=== PATIENT | female | born 1935 | race Caucasian/White ===

== ENCOUNTER → 2016-08-09 | Outpatient (CLI) | payer OTHER ==
[~2016-08-09] MED LIST: ASCO500C3; ASPI-247; CALC600T65; LISI10TA6; MAGN200T; MECL25CH20; MULTPOW; SIMV-8
[2016-08-09 11:51] LABS: Albumin 3.4 g/dL (3.4-5.0); BUN/Creatinine Ratio 28.8; Bilirubin, Total 0.4 mg/dL (0.2-1.0); Calcium 8.9 mg/dL (8.5-10.1); Potassium 4.5 mmol/L (3.5-5.1)
[2016-08-09 14:21] LABS: Hepatitis B Surface Antibody Negative
== END | disposition home or self-care (01) ==
LOC: LAB 09:55
PROVIDERS: ATTEND Internal Medicine
DX: R93.2 Abnormal findings on diagnostic imaging of liver and biliary tract (principal)
CPT/HCPCS: 36415; 80053; 86706; 86708; 86803

== ENCOUNTER → 2016-10-14 | Outpatient (CLI) | payer OTHER ==
[2016-10-14 09:47] LABS: Basophils # (auto) 0.1 uL; Basophils % (auto) 1.7 % (0.0-2.0); Eosinophils # (auto) 0.1 uL; Eosinophils % (auto) 1.5 % (0.0-7.0); Hematocrit 43.7 % (36.0-46.0); Hemoglobin 14.7 g/dL (12.2-16.2); Lymphocytes # (auto) 1.6 uL; Lymphocytes % (auto) 25.1 % (10.0-50.0); Mean Corpuscular Hemoglobin 32.4 pg (28.0-32.0); Mean Corpuscular Hgb Conc. 33.6 g/dL (32.0-36.0); Mean Corpuscular Volume 96.4 fL (80.0-100.0); Mean Platelet Volume 9.5 fL (7.4-10.4); Monocytes # (auto) 0.9 uL; Monocytes % (auto) 13.6 % (0.0-12.0); Neutrophils # (auto) 3.6 uL; Neutrophils % (auto) 58.1 % (37.0-80.0); Platelet Count (auto) 294 10^3/uL (140-450); Red Cell Distribution Width 15.1 % (11.6-16.0); White Blood Cell 6.3 10^3/uL (4.4-10.8)
[2016-10-14 09:55] LABS: Albumin 3.8 g/dL (3.4-5.0); BUN/Creatinine Ratio 20.3; Bilirubin, Total 0.8 mg/dL (0.2-1.0); Calcium 9.3 mg/dL (8.5-10.1); Potassium 4.6 mmol/L (3.5-5.1); Total Protein 7.3 g/dL (6.4-8.2)
== END | disposition home or self-care (01) ==
LOC: LAB 09:13
PROVIDERS: ATTEND Internal Medicine
DX: Z12.11 Encounter for screening for malignant neoplasm of colon (principal); Z00.00 Encounter for general adult medical examination without abnormal findings; I10 Essential (primary) hypertension
CPT/HCPCS: 36415; 80053; 80061; 82043; 82270; 82306; 84443; 85025

== ENCOUNTER → 2016-12-22 | Outpatient (CLI) | payer OTHER ==
[2016-12-22 11:31] LABS: Aspartate Aminotransferase 34 U/L (15-37)
== END | disposition home or self-care (01) ==
LOC: LAB 09:25
PROVIDERS: ATTEND Internal Medicine
DX: R93.2 Abnormal findings on diagnostic imaging of liver and biliary tract (principal)
CPT/HCPCS: 36415; 84450; 84460

== ENCOUNTER → 2017-06-21 | Outpatient (CLI) | payer OTHER ==
[~2017-06-21] MED LIST changes: +CHOL1TAB28 PO; +DIGO0.1262 PO; +METO25TA5 PO; +WARF5TAB71 PO
[2017-06-21 12:12] LABS: Basophils # (auto) 0.3 uL; Basophils % (auto) 3.5 % (0.0-2.0); Eosinophils # (auto) 0.1 uL; Eosinophils % (auto) 1.6 % (0.0-7.0); Hematocrit 47.9 % (36.0-46.0); Hemoglobin 15.9 g/dL (12.2-16.2); Lymphocytes # (auto) 1.7 uL; Lymphocytes % (auto) 22.5 % (10.0-50.0); Mean Corpuscular Hemoglobin 32.1 pg (28.0-32.0); Mean Corpuscular Hgb Conc. 33.2 g/dL (32.0-36.0); Mean Corpuscular Volume 96.8 fL (80.0-100.0); Monocytes # (auto) 0.7 uL; Monocytes % (auto) 9.9 % (0.0-12.0); Neutrophils # (auto) 4.6 uL; Neutrophils % (auto) 62.5 % (37.0-80.0); Nucleated Red Blood Cells % 0.1 %; Platelet Count (auto) 381 10^3/uL (140-450); Red Blood Cells 4.95 10^6/uL (4.0-5.20); Red Cell Distribution Width 14.5 % (11.8-14.3); White Blood Cell 7.4 10^3/uL (4.4-10.8)
[2017-06-21 13:51] LABS: Folate (Folic Acid) 10.1 ng/mL (5.38-24)
[2017-06-21 13:54] LABS: Albumin 3.8 g/dL (3.4-5.0); BUN/Creatinine Ratio 30.1; Bilirubin, Total 0.4 mg/dL (0.2-1.0); Calcium 8.7 mg/dL (8.5-10.1); Potassium 4.9 mmol/L (3.5-5.1); Total Protein 7.9 g/dL (6.4-8.2)
[2017-06-22 03:07] LABS: RPR Non Reactive (Non Reactive)
== END | disposition home or self-care (01) ==
LOC: LAB 11:48
PROVIDERS: ATTEND Internal Medicine
DX: Z00.01 Encounter for general adult medical examination with abnormal findings (principal); G45.4 Transient global amnesia
CPT/HCPCS: 36415; 80053; 82607; 82746; 84443; 85025; 85652; 86592

== ENCOUNTER 2017-06-28 09:24 | Inpatient (IN) | payer OTHER ==
[~2017-06-28] VITALS: Ht 162.6 cm; Wt 52.6 kg
[~2017-06-28 09:24] MED LIST changes: -CHOL1TAB28 PO; -DIGO0.1262 PO; -METO25TA5 PO; -WARF5TAB71 PO
[2017-06-28 10:31] LABS: Basophils # (auto) 0.1 uL; Basophils % (auto) 1.8 % (0.0-2.0); Eosinophils # (auto) 0.1 uL; Eosinophils % (auto) 1.1 % (0.0-7.0); Hematocrit 43.1 % (36.0-46.0); Hemoglobin 13.9 g/dL (12.2-16.2); Lymphocytes # (auto) 1.3 uL; Lymphocytes % (auto) 18.2 % (10.0-50.0); Mean Corpuscular Hemoglobin 31.7 pg (28.0-32.0); Mean Corpuscular Hgb Conc. 32.3 g/dL (32.0-36.0); Mean Corpuscular Volume 98.1 fL (80.0-100.0); Monocytes # (auto) 0.9 uL; Monocytes % (auto) 12.3 % (0.0-12.0); Neutrophils # (auto) 4.9 uL; Neutrophils % (auto) 66.6 % (37.0-80.0); Nucleated Red Blood Cells % 0.1 %; Platelet Count (auto) 328 10^3/uL (140-450); Red Blood Cells 4.39 10^6/uL (4.0-5.20); Red Cell Distribution Width 14.8 % (11.8-14.3); White Blood Cell 7.4 10^3/uL (4.4-10.8)
[2017-06-28 11:42] LABS: Alanine Aminotransferase 36 U/L (13-56); Albumin 3.3 g/dL (3.4-5.0); Anion Gap 13 (5-15); Aspartate Aminotransferase 26 U/L (15-37); BUN/Creatinine Ratio 22.3; Blood Urea Nitrogen 21 mg/dL (7-18); Calcium 8.5 mg/dL (8.5-10.1); Carbon Dioxide 24 mmol/L (21-32); Chloride 101 mmol/L (98-107); GFR African American 73 mL/min; GFR Non-African American 60 mL/min; Glucose 78 mg/dL (74-106); Potassium 4.4 mmol/L (3.5-5.1); Sodium 138 mmol/L (136-145)
[2017-06-28 11:47] LABS: Alkaline Phosphatase 94 U/L (45-117); Bilirubin, Total 0.5 mg/dL (0.2-1.0)
[2017-06-28 11:53] LABS: INR 1.03 (0.9-1.15); Partial Thromboplastin Time 26.8 sec (22.64-33.71); Prothrombin Time 11.2 sec (9.37-12.3)
[2017-06-28 13:00] LABS: Urine Bacteria NONE SEEN /hpf (None Seen); Urine Blood Negative /uL (Negative); Urine Specific Gravity 1.012 (1.001-1.035); Urine WBC 2 /hpf (0 - 5)
[2017-06-28] MEDS ORDERED: ONDANSETRON HCL 4 MG/2 ML VIAL IV PRN (13:45)
[2017-06-28] MEDS ORDERED: NITROGLYCERIN 0.4 MG SL TAB SL PRN (13:45)
[2017-06-28] MEDS ORDERED: MORPHINE SULFATE 4 MG/ML SYR/VIAL IV PRN (13:45)
[2017-06-28] MEDS ORDERED: LISINOPRIL 10 MG TAB PO ONE (13:45)
[2017-06-28] MEDS ORDERED: cefTRIAXone 1GM/10ml IVPUSH 10 ML IV ONE (13:45)
[2017-06-28] MEDS: ENOXAPARIN SOD 60 MG/0.6 ML SYRINGE SC SCH ×2 (14:10→21:51)
[2017-06-28] MEDS: LABETALOL HCL 5 MG/ML ML 20ML VIAL IV PRN (14:14)
[2017-06-28] MEDS ORDERED: WARFARIN SODIUM 5 MG TAB PO ONE (17:00)
[2017-06-28 18:52] VITALS: BP 157/87
[2017-06-28] MEDS: HYDROcodone-ACET 5/325MG TAB PO PRN (18:57)
[2017-06-28] MEDS ORDERED: METO25TA5 PO (19:17)
[2017-06-28] MEDS ORDERED: WARF5TAB71 PO (19:17)
[2017-06-28] MEDS ORDERED: CHOL1TAB28 PO (19:17)
[2017-06-28] MEDS ORDERED: DIGO0.1262 PO (19:17)
[2017-06-28] MEDS: ATORVASTATIN 20 MG TAB PO SCH (21:50)
[2017-06-29] MEDS: HYDROcodone-ACET 5/325MG TAB PO PRN ×3 (03:38→21:01)
[2017-06-29] MEDS: MORPHINE SULFATE 4 MG/ML SYR/VIAL IV PRN ×2 (04:32→21:05)
[2017-06-29 04:50] VITALS: BP 102/73
[2017-06-29 07:00] LABS: INR 1.05 (0.9-1.15); Partial Thromboplastin Time 25.7 sec (22.64-33.71); Prothrombin Time 11.4 sec (9.37-12.3)
[2017-06-29] MEDS ORDERED: IOHEXOL 350 MG/ML 100ML IJ ONE (07:23)
[2017-06-29 08:00] VITALS: BP 104/50
[2017-06-29 08:19] LABS: Basophils # (auto) 0.1 uL; Basophils % (auto) 1.2 % (0.0-2.0); Eosinophils # (auto) 0 uL; Eosinophils % (auto) 0.3 % (0.0-7.0); Hematocrit 46.4 % (36.0-46.0); Hemoglobin 15.4 g/dL (12.2-16.2); Lymphocytes # (auto) 0.9 uL; Lymphocytes % (auto) 9.3 % (10.0-50.0); Mean Corpuscular Hemoglobin 32.1 pg (28.0-32.0); Mean Corpuscular Hgb Conc. 33.2 g/dL (32.0-36.0); Mean Corpuscular Volume 96.6 fL (80.0-100.0); Monocytes # (auto) 0.8 uL; Monocytes % (auto) 8.6 % (0.0-12.0); Neutrophils # (auto) 7.5 uL; Neutrophils % (auto) 80.6 % (37.0-80.0); Platelet Count (auto) 302 10^3/uL (140-450); Red Cell Distribution Width 14.6 % (11.8-14.3); White Blood Cell 9.3 10^3/uL (4.4-10.8)
[2017-06-29] MEDS: LISINOPRIL 10 MG TAB PO SCH (10:00)
[2017-06-29] MEDS: ENOXAPARIN SOD 60 MG/0.6 ML SYRINGE SC SCH (10:04)
[2017-06-29] MEDS: cefTRIAXone 1GM/10ml IVPUSH 10 ML IV SCH (10:05)
[2017-06-29] MEDS ORDERED: HEPARIN DRIP/D5W 100UNITS/ML 250 ML IV SCH (10:22)
[2017-06-29] MEDS: SODIUM CHLORIDE 0.9% 1,000 ML IV SCH (11:39)
[2017-06-29 12:00] VITALS: BP 159/77
[2017-06-29] MEDS: HEPARIN DRIP/D5W 100UNITS/ML 250 ML IV SCH (12:42)
[2017-06-29 17:00] VITALS: BP 120/46
[2017-06-29] MEDS ORDERED: WARFARIN SODIUM 5 MG TAB PO ONE (17:00)
[2017-06-29 19:23] LABS: INR 1.05 (0.9-1.15); Partial Thromboplastin Time 28.5 sec (22.64-33.71); Prothrombin Time 11.4 sec (9.37-12.3)
[2017-06-29] MEDS: ATORVASTATIN 20 MG TAB PO SCH (21:04)
[2017-06-29 22:00] VITALS: BP 158/94
[2017-06-30] VITALS (33 sets, daily range): BP systolic 94–168; BP diastolic 53–115
[2017-06-30] MEDS: LABETALOL HCL 5 MG/ML ML 20ML VIAL IV PRN (04:55)
[2017-06-30] MEDS: SODIUM CHLORIDE 0.9% 1,000 ML IV SCH ×2 (05:04→13:10)
[2017-06-30 06:38] LABS: Basophils # (auto) 0.1 uL; Eosinophils # (auto) 0.1 uL; Eosinophils % (auto) 1.4 % (0.0-7.0); Hemoglobin 14.6 g/dL (12.2-16.2); Lymphocytes # (auto) 1.2 uL; Lymphocytes % (auto) 19.3 % (10.0-50.0); Mean Corpuscular Hemoglobin 32.4 pg (28.0-32.0); Mean Corpuscular Hgb Conc. 33.2 g/dL (32.0-36.0); Mean Corpuscular Volume 97.5 fL (80.0-100.0); Monocytes # (auto) 0.7 uL; Monocytes % (auto) 11.4 % (0.0-12.0); Neutrophils # (auto) 4.2 uL; Neutrophils % (auto) 66.9 % (37.0-80.0); Nucleated Red Blood Cells % 0.1 %; Platelet Count (auto) 286 10^3/uL (140-450); Red Blood Cells 4.51 10^6/uL (4.0-5.20); Red Cell Distribution Width 14.6 % (11.8-14.3); White Blood Cell 6.2 10^3/uL (4.4-10.8)
[2017-06-30 06:50] LABS: INR 1.01 (0.9-1.15); Partial Thromboplastin Time 34.1 sec (22.64-33.71)
[2017-06-30 07:02] LABS: BUN/Creatinine Ratio 13.8; Calcium 8.5 mg/dL (8.5-10.1); Cholesterol 155 mg/dL (< 200); HDL Cholesterol 57 mg/dL (40-59); LDL Cholesterol 95 mg/dL (< 100); Potassium 4.2 mmol/L (3.5-5.1); Triglycerides 96 mg/dL (< 150)
[2017-06-30] MEDS: LISINOPRIL 10 MG TAB PO SCH (08:16)
[2017-06-30] MEDS ORDERED: IOHEXOL 350 MG/ML 100ML IJ ONE (08:25)
[2017-06-30] MEDS ORDERED: LIDOCAINE 2%HCL (LOCAL ANESTH.) INJ 20ML MDV ONE (08:25)
[2017-06-30] MEDS ORDERED: ANGIOMAX 250 MG VIAL IV ONE (08:59)
[2017-06-30] MEDS ORDERED: fentaNYL CITRATE 100 MCG/2 ML VL ONE (08:59)
[2017-06-30] MEDS ORDERED: MIDAZOLAM HCL 1MG/1ML-2 ML VIAL ONE (08:59)
[2017-06-30] MEDS: cefTRIAXone 1GM/10ml IVPUSH 10 ML IV SCH (09:00)
[2017-06-30] MEDS ORDERED: EPTIFIBATIDE INJ (2MG/ML) 10ML VIAL IV ONE ×2 (09:17→10:11)
[2017-06-30] MEDS ORDERED: EPTIFIBATIDE DRIP(0.75MG/ML) 100 ML IV ONE ×2 (10:31→15:34)
[2017-06-30] MEDS: HEPARIN DRIP/D5W 100UNITS/ML 250 ML IV SCH (12:15)
[2017-06-30] MEDS: HYDROcodone-ACET 5/325MG TAB PO PRN (12:49)
[2017-06-30 14:54] LABS: INR 1.27 (0.9-1.15); Partial Thromboplastin Time 66.9 sec (22.64-33.71); Prothrombin Time 13.9 sec (9.37-12.3)
[2017-06-30] MEDS ORDERED: DIGOXIN (250MCG/ML) 2 ML AMPULE ONE (16:25)
[2017-06-30] MEDS: DIGOXIN (250MCG/ML) 2 ML AMPULE IV SCH ×2 (16:30→22:15)
[2017-06-30] MEDS: ATORVASTATIN 20 MG TAB PO SCH (22:00)
[2017-07-01] VITALS (26 sets, daily range): BP systolic 104–175; BP diastolic 51–110
[2017-07-01] MEDS ORDERED: EPTIFIBATIDE DRIP(0.75MG/ML) 100 ML IV SCH (02:00)
[2017-07-01] MEDS: SODIUM CHLORIDE 0.9% 1,000 ML IV SCH ×2 (02:45→17:37)
[2017-07-01 03:56] LABS: Basophils # (auto) 0.1 uL; Basophils % (auto) 0.6 % (0.0-2.0); Eosinophils # (auto) 0.1 uL; Eosinophils % (auto) 0.6 % (0.0-7.0); Hematocrit 36.1 % (36.0-46.0); Hemoglobin 12.2 g/dL (12.2-16.2); Lymphocytes # (auto) 1.4 uL; Mean Corpuscular Hemoglobin 32.5 pg (28.0-32.0); Mean Corpuscular Hgb Conc. 33.7 g/dL (32.0-36.0); Mean Corpuscular Volume 96.5 fL (80.0-100.0); Monocytes # (auto) 1.3 uL; Monocytes % (auto) 12.1 % (0.0-12.0); Neutrophils # (auto) 7.9 uL; Neutrophils % (auto) 73.7 % (37.0-80.0); Platelet Count (auto) 243 10^3/uL (140-450); Red Blood Cells 3.74 10^6/uL (4.0-5.20); Red Cell Distribution Width 14.4 % (11.8-14.3); White Blood Cell 10.7 10^3/uL (4.4-10.8)
[2017-07-01 04:05] LABS: INR 1.01 (0.9-1.15); Partial Thromboplastin Time 26.6 sec (22.64-33.71)
[2017-07-01 04:14] LABS: BUN/Creatinine Ratio 26.4; Calcium 8.3 mg/dL (8.5-10.1); Potassium 3.9 mmol/L (3.5-5.1)
[2017-07-01] MEDS ORDERED: LIDOCAINE 2%HCL (LOCAL ANESTH.) INJ 20ML MDV ONE (09:15)
[2017-07-01] MEDS ORDERED: IOHEXOL 350 MG/ML 100ML IJ ONE (09:15)
[2017-07-01] MEDS ORDERED: ANGIOMAX 250 MG VIAL IV ONE (09:35)
[2017-07-01] MEDS ORDERED: MIDAZOLAM HCL 1MG/1ML-2 ML VIAL ONE (09:36)
[2017-07-01] MEDS ORDERED: fentaNYL CITRATE 100 MCG/2 ML VL ONE (09:36)
[2017-07-01] MEDS ORDERED: SODIUM CHL 0.9% 0 ML ONE (09:36)
[2017-07-01] MEDS: cefTRIAXone 1GM/10ml IVPUSH 10 ML IV SCH (10:38)
[2017-07-01] MEDS: LISINOPRIL 10 MG TAB PO SCH (10:39)
[2017-07-01] MEDS: LABETALOL HCL 5 MG/ML ML 20ML VIAL IV PRN (12:08)
[2017-07-01] MEDS ORDERED: WARFARIN SODIUM 2.5 MG TAB PO ONE (17:00)
[2017-07-01] MEDS: ATORVASTATIN 20 MG TAB PO SCH (21:05)
[2017-07-02 05:13] VITALS: BP 148/83
[2017-07-02] MEDS: SODIUM CHLORIDE 0.9% 1,000 ML IV SCH ×2 (05:49→18:30)
[2017-07-02 05:58] LABS: INR 1.04 (0.9-1.15); Prothrombin Time 11.3 sec (9.37-12.3)
[2017-07-02 06:00] LABS: Basophils # (auto) 0.1 uL; Eosinophils # (auto) 0.2 uL; Eosinophils % (auto) 2.4 % (0.0-7.0); Hematocrit 33.9 % (36.0-46.0); Hemoglobin 11.3 g/dL (12.2-16.2); Lymphocytes # (auto) 1.8 uL; Lymphocytes % (auto) 20.9 % (10.0-50.0); Mean Corpuscular Hemoglobin 32.5 pg (28.0-32.0); Mean Corpuscular Hgb Conc. 33.5 g/dL (32.0-36.0); Mean Corpuscular Volume 97.2 fL (80.0-100.0); Monocytes % (auto) 11.5 % (0.0-12.0); Neutrophils # (auto) 5.6 uL; Neutrophils % (auto) 64.2 % (37.0-80.0); Nucleated Red Blood Cells % 0.1 %; Platelet Count (auto) 209 10^3/uL (140-450); Red Blood Cells 3.48 10^6/uL (4.0-5.20); Red Cell Distribution Width 14.5 % (11.8-14.3); White Blood Cell 8.7 10^3/uL (4.4-10.8)
[2017-07-02 06:29] LABS: Calcium 7.8 mg/dL (8.5-10.1); Potassium 4.2 mmol/L (3.5-5.1)
[2017-07-02] MEDS ORDERED: MAGNESIUM CITRATE SOLUTION 300 ML BTL PO ONE (08:30)
[2017-07-02] MEDS: DIGOXIN 0.125 MG TAB PO SCH (08:53)
[2017-07-02] MEDS: cefTRIAXone 1GM/10ml IVPUSH 10 ML IV SCH (08:53)
[2017-07-02] MEDS: METOPROLOL SUCCINATE XL 50 MG TAB PO SCH (08:57)
[2017-07-02] MEDS: LISINOPRIL 10 MG TAB PO SCH (08:57)
[2017-07-02 09:00] VITALS: BP 136/62
[2017-07-02 13:00] VITALS: BP 128/69
[2017-07-02 17:00] VITALS: BP 150/58
[2017-07-02] MEDS ORDERED: WARFARIN SODIUM 2.5 MG TAB PO ONE (17:00)
[2017-07-02 20:00] VITALS: BP 112/65
[2017-07-02] MEDS: ATORVASTATIN 20 MG TAB PO SCH (21:38)
[2017-07-02 21:40] VITALS: BP 112/65
[2017-07-03 04:59] VITALS: BP 139/87
[2017-07-03 05:40] LABS: INR 1.26 (0.9-1.15); Prothrombin Time 13.8 sec (9.37-12.3)
[2017-07-03 09:00] VITALS: BP 110/62
[2017-07-03] MEDS: cefTRIAXone 1GM/10ml IVPUSH 10 ML IV SCH (10:03)
[2017-07-03] MEDS: LISINOPRIL 10 MG TAB PO SCH (10:04)
[2017-07-03] MEDS: DIGOXIN 0.125 MG TAB PO SCH (10:04)
[2017-07-03] MEDS: METOPROLOL SUCCINATE XL 50 MG TAB PO SCH (10:04)
[2017-07-03] MEDS: SODIUM CHLORIDE 0.9% 1,000 ML IV SCH (10:12)
[2017-07-03 13:00] VITALS: BP 143/68
[2017-07-03] MEDS ORDERED: WARFARIN SODIUM 2.5 MG TAB PO ONE (17:00)
== END 2017-07-03 16:30 | disposition home or self-care (01) | DRG 271 ==
LOC: ER 09:24 → TELE 09:25 → TELE-CENTR 18:15 → DOU 06-30 17:34 → ICU WEST 06-30 22:45 → TELE-WESTW 07-01 14:28
PROVIDERS: ADMIT Internal Medicine; ATTEND Family Medicine
PROC: 04CU3ZZ Extirpation of Matter from Left Peroneal Artery, Percutaneous Approach (ICD-10-PCS; 2017-06-28)
PROC: 047S3ZZ Dilation of Left Posterior Tibial Artery, Percutaneous Approach (ICD-10-PCS; 2017-06-28)
PROC: 04CS3ZZ Extirpation of Matter from Left Posterior Tibial Artery, Percutaneous Approach (ICD-10-PCS; 2017-06-28)
PROC: B41G1ZZ Fluoroscopy of Left Lower Extremity Arteries using Low Osmolar Contrast (ICD-10-PCS; principal; 2017-06-30)
PROC: 047U3ZZ Dilation of Left Peroneal Artery, Percutaneous Approach (ICD-10-PCS; 2017-06-30)
PROC: B41F1ZZ Fluoroscopy of Right Lower Extremity Arteries using Low Osmolar Contrast (ICD-10-PCS; 2017-06-30)
PROC: 3C1ZX8Z Irrigation of Indwelling Device using Irrigating Substance, External Approach (ICD-10-PCS; 2017-06-30)
PROC: 3E053PZ Introduction of Platelet Inhibitor into Peripheral Artery, Percutaneous Approach (ICD-10-PCS; 2017-06-30)
PROC: B41G1ZZ Fluoroscopy of Left Lower Extremity Arteries using Low Osmolar Contrast (ICD-10-PCS; 2017-07-01)
DX: I74.3 Embolism and thrombosis of arteries of the lower extremities (principal); G45.9 Transient cerebral ischemic attack, unspecified; D68.59 Other primary thrombophilia; I48.2 Chronic atrial fibrillation; C44.90 Unspecified malignant neoplasm of skin, unspecified; M54.12 Radiculopathy, cervical region; E78.5 Hyperlipidemia, unspecified; N39.0 Urinary tract infection, site not specified; I10 Essential (primary) hypertension; I35.1 Nonrheumatic aortic (valve) insufficiency; I67.2 Cerebral atherosclerosis; Z53.20 Procedure and treatment not carried out because of patient's decision for unspecified reasons; Z79.01 Long term (current) use of anticoagulants; Z79.899 Other long term (current) drug therapy; Z85.828 Personal history of other malignant neoplasm of skin; Z86.73 Personal history of transient ischemic attack (TIA), and cerebral infarction without residual deficits; Z80.9 Family history of malignant neoplasm, unspecified; Z88.0 Allergy status to penicillin
CPT/HCPCS: 36415; 36593; 37224; 37228; 70450; 71045; 75635; 75710; 75716; 76937; 80048; 80053; 80061; 81001; 83735; 84443; 84484; 85025; 85610; 85730; 87081; 93005; 93306; 93886; 93926; 94761; 95819; 96372; 96374; 97116; 97163; 97530; 99152; 99153; C1769; J2250

== ENCOUNTER → 2017-08-17 | Outpatient (CLI) | payer OTHER ==
[~2017-08-17] MED LIST changes: -ASCO500C3; -ASPI-247; -CALC600T65; +CHOL1TAB28 PO; +DIGO0.1262 PO; -LISI10TA6; -MAGN200T; -MECL25CH20; +METO25TA5 PO; -MULTPOW; -SIMV-8; +WARF5TAB71 PO
== END | disposition home or self-care (01) ==
LOC: Rad HDHVI 09:04
PROVIDERS: ATTEND Internal Medicine Cardiovascular Disease
DX: I73.9 Peripheral vascular disease, unspecified (principal); I10 Essential (primary) hypertension; E78.5 Hyperlipidemia, unspecified
CPT/HCPCS: 93926

== ENCOUNTER → 2017-08-26 | Outpatient (CLI) | payer OTHER ==
[2017-08-26 14:00] VITALS: BP 137/70
== END | disposition home or self-care (01) ==
LOC: CHF HDHVI 14:16
PROVIDERS: ATTEND Internal Medicine Cardiovascular Disease
DX: I10 Essential (primary) hypertension (principal); E78.5 Hyperlipidemia, unspecified; Z79.01 Long term (current) use of anticoagulants; Z79.899 Other long term (current) drug therapy; Z86.718 Personal history of other venous thrombosis and embolism
CPT/HCPCS: 96372; G0463

== ENCOUNTER → 2017-08-30 | Outpatient (CLI) | payer OTHER | END | disposition home or self-care (01) | LOC: LAB 09:00 | PROVIDERS: ATTEND Physician Assistant | DX: L85.8 Other specified epidermal thickening (principal); I10 Essential (primary) hypertension; E78.5 Hyperlipidemia, unspecified; Z79.01 Long term (current) use of anticoagulants; Z79.899 Other long term (current) drug therapy ==

== ENCOUNTER → 2017-10-11 | Outpatient (CLI) | payer OTHER | END | disposition home or self-care (01) | LOC: LAB 12:20 | PROVIDERS: ATTEND Physician Assistant | DX: L82.1 Other seborrheic keratosis (principal) ==

== ENCOUNTER → 2018-06-05 | Outpatient (CLI) | payer OTHER ==
[2018-06-05 11:58] LABS: Chloride 106 mmol/L (98-107); Potassium 4.6 mmol/L (3.5-5.1); Sodium 138 mmol/L (136-145)
[2018-06-05 12:22] LABS: Alanine Aminotransferase 33 U/L (13-56); Albumin 3.7 g/dL (3.4-5.0); Alkaline Phosphatase 102 U/L (45-117); Anion Gap 6 (5-15); Aspartate Aminotransferase 27 U/L (15-37); BUN/Creatinine Ratio 20.9; Bilirubin, Total 0.4 mg/dL (0.2-1.0); Blood Urea Nitrogen 18 mg/dL (7-18); Calcium 9.1 mg/dL (8.5-10.1); Carbon Dioxide 26 mmol/L (21-32); GFR African American > 60 mL/min; GFR Non-African American > 60 mL/min; Glucose 96 mg/dL (74-106); Total Protein 7.7 g/dL (6.4-8.2)
== END | disposition home or self-care (01) ==
LOC: LAB 11:15
PROVIDERS: ATTEND Internal Medicine
DX: I48.1 Persistent atrial fibrillation (principal)
CPT/HCPCS: 36415; 80053; 80162

== ENCOUNTER → 2019-07-10 | Outpatient (CLI) | payer OTHER ==
[~2019-07-10] MED LIST changes: +DIGO0.12 PO; -DIGO0.1262 PO
[2019-07-10 09:43] LABS: Basophils # (auto) 0.1 uL; Basophils % (auto) 1.7 % (0.0-2.0); Eosinophils # (auto) 0 uL; Eosinophils % (auto) 0.6 % (0.0-7.0); Hematocrit 46.1 % (36.0-46.0); Hemoglobin 15.7 g/dL (12.2-16.2); Lymphocytes # (auto) 1.1 uL; Lymphocytes % (auto) 18.8 % (10.0-50.0); Mean Corpuscular Volume 97.3 fL (80.0-100.0); Monocytes # (auto) 0.5 uL; Monocytes % (auto) 8.5 % (0.0-12.0); Neutrophils # (auto) 3.9 uL; Neutrophils % (auto) 70.4 % (37.0-80.0); Nucleated Red Blood Cells % 0.1 %; Platelet Count (auto) 274 10^3/uL (140-450); Red Blood Cells 4.74 10^6/uL (4.0-5.20); Red Cell Distribution Width 14.9 % (11.8-14.3); White Blood Cell 5.6 10^3/uL (4.4-10.8)
[2019-07-10 09:46] LABS: INR 1.2 (0.9-1.15)
[2019-07-10 09:54] LABS: Potassium 4.7 mmol/L (3.5-5.1)
[2019-07-10 10:03] LABS: Albumin 3.6 g/dL (3.4-5.0); Bilirubin, Total 0.7 mg/dL (0.2-1.0); Calcium 9.2 mg/dL (8.5-10.1); Total Protein 7.5 g/dL (6.4-8.2)
== END | disposition home or self-care (01) ==
LOC: LAB 08:16
PROVIDERS: ATTEND Internal Medicine
DX: Z00.00 Encounter for general adult medical examination without abnormal findings (principal); I48.19 Other persistent atrial fibrillation; I10 Essential (primary) hypertension; Z12.11 Encounter for screening for malignant neoplasm of colon
CPT/HCPCS: 36415; 80053; 80061; 82306; 84439; 84443; 85025; 85610

== ENCOUNTER → 2019-08-20 | Outpatient (CLI) | payer OTHER | END | disposition home or self-care (01) | LOC: LAB 11:09 | PROVIDERS: ATTEND Internal Medicine | DX: Z00.00 Encounter for general adult medical examination without abnormal findings (principal); I48.19 Other persistent atrial fibrillation; I10 Essential (primary) hypertension; Z12.11 Encounter for screening for malignant neoplasm of colon | CPT/HCPCS: 82274 ==

== ENCOUNTER → 2020-07-08 | Outpatient (CLI) | payer OTHER ==
[~2020-07-08] MED LIST changes: +ADENOSINE 90 MG/30 ML INJ IV ONE
== END | disposition home or self-care (01) ==
LOC: Rad HDHVI 13:08
PROVIDERS: ATTEND Internal Medicine Cardiovascular Disease
DX: I08.3 Combined rheumatic disorders of mitral, aortic and tricuspid valves (principal); I71.2 Thoracic aortic aneurysm, without rupture; R00.2 Palpitations; I49.5 Sick sinus syndrome
CPT/HCPCS: 93306

== ENCOUNTER → 2020-07-10 | Outpatient (CLI) | payer OTHER ==
[~2020-07-10] VITALS: Ht 163.8 cm; Wt 47.6 kg
[~2020-07-10] MED LIST changes: +ADENOSINE 40 MG in GIVE UN-DILUTED 0 ML IV ONE; -ADENOSINE 90 MG/30 ML INJ IV ONE
== END | disposition home or self-care (01) ==
LOC: Rad HDHVI 09:08
PROVIDERS: ATTEND Internal Medicine Cardiovascular Disease
DX: I48.11 Longstanding persistent atrial fibrillation (principal); I10 Essential (primary) hypertension; R00.2 Palpitations; I49.5 Sick sinus syndrome; Z82.49 Family history of ischemic heart disease and other diseases of the circulatory system
CPT/HCPCS: 78452; 93005; 96374; 96375; A9500; J0153

== ENCOUNTER → 2020-09-09 | Outpatient (CLI) | payer OTHER ==
[~2020-09-09] MED LIST changes: -ADENOSINE 40 MG in GIVE UN-DILUTED 0 ML IV ONE
[2020-09-09 09:45] LABS: Basophils # (auto) 0 10 ^3/uL (0-0.2); Basophils % (auto) 0.3 % (0.0-2.0); Eosinophils # (auto) 0.1 10 ^3/uL (0-0.8); Eosinophils % (auto) 2.1 % (0.0-7.0); Hematocrit 43.9 % (36.0-46.0); Hemoglobin 14.9 g/dL (12.2-16.2); Lymphocytes # (auto) 1.3 10 ^3/uL (0.4-5.4); Lymphocytes % (auto) 20.2 % (10.0-50.0); Mean Corpuscular Hemoglobin 32.6 pg (28.0-32.0); Mean Corpuscular Hgb Conc. 33.9 g/dL (32.0-36.0); Monocytes # (auto) 0.7 10 ^3/uL (0-1.3); Monocytes % (auto) 10.4 % (0.0-12.0); Neutrophils # (auto) 4.2 10 ^3/uL (1.6-8.6); Nucleated Red Blood Cells % 1.6 %; Platelet Count (auto) 244 10^3/uL (140-450); Red Blood Cells 4.57 10^6/uL (4.0-5.20); Red Cell Distribution Width 14.3 % (11.8-14.3); White Blood Cell 6.3 10^3/uL (4.4-10.8)
[2020-09-09 10:38] LABS: Potassium 4.6 mmol/L (3.5-5.1)
[2020-09-09 10:47] LABS: Albumin 3.4 g/dL (3.4-5.0); BUN/Creatinine Ratio 34.4; Bilirubin, Total 0.6 mg/dL (0.2-1.0); Calcium 8.9 mg/dL (8.5-10.1); Total Protein 6.8 g/dL (6.4-8.2)
== END | disposition home or self-care (01) ==
LOC: LAB 09:10
PROVIDERS: ATTEND Internal Medicine
DX: Z00.00 Encounter for general adult medical examination without abnormal findings (principal); Z12.11 Encounter for screening for malignant neoplasm of colon; I10 Essential (primary) hypertension; E55.9 Vitamin D deficiency, unspecified
CPT/HCPCS: 36415; 80053; 80061; 82306; 84443; 85025

== ENCOUNTER → 2020-09-15 | Outpatient (CLI) | payer OTHER | END | disposition home or self-care (01) | LOC: LAB 11:09 | PROVIDERS: ATTEND Internal Medicine | DX: Z12.11 Encounter for screening for malignant neoplasm of colon (principal); Z00.00 Encounter for general adult medical examination without abnormal findings; I10 Essential (primary) hypertension; E55.9 Vitamin D deficiency, unspecified | CPT/HCPCS: 82274 ==

== ENCOUNTER 2020-10-02 06:58 | Inpatient (IN) | payer OTHER ==
[~2020-10-02] VITALS: Ht 162.6 cm; Wt 50.9 kg
[~2020-10-02 06:58] MED LIST changes: +MULT-688 PO
[2020-10-02] MEDS ORDERED: VANCOMYCIN 1GM/250ML 250 ML IV ONE ×2 (08:15→22:00)
[2020-10-02] MEDS ORDERED: VANCOMYCIN PER PHARMACY 0 MG IV SCH (08:15)
[2020-10-02] MEDS ORDERED: LIDOCAINE 2%HCL (LOCAL ANESTH.) INJ 20ML MDV ONE (10:22)
[2020-10-02] MEDS ORDERED: fentaNYL CITRATE 100 MCG/2 ML VL ONE (10:22)
[2020-10-02] MEDS ORDERED: MIDAZOLAM HCL 2MG/2ML 2ml VIAL (1mg/ml) ONE (10:22)
[2020-10-02] MEDS ORDERED: VANCOMYCIN HCL 1000 MG VL ONE (10:22)
[2020-10-02] MEDS ORDERED: diphenhdrAMINE HCL 50 MG/1 ML VL ONE (10:32)
[2020-10-02] MEDS ORDERED: IOHEXOL 350 MG/ML 100ML IJ ONE (10:56)
[2020-10-02] MEDS ORDERED: FUROSEMIDE 20 MG/2 ML VIAL ONE (11:17)
[2020-10-02] MEDS ORDERED: NITROGLYCERIN 0.4 MG SL TAB SL PRN (12:00)
[2020-10-02] MEDS ORDERED: HYDROcodone-ACET 5/325MG TAB PO PRN (12:00)
[2020-10-02] MEDS ORDERED: MORPHINE SULFATE INJECTION 2 MG/ML SYRG IV PRN (12:00)
[2020-10-02] MEDS ORDERED: ACETAMINOPHEN 325 MG TAB PO PRN (12:00)
[2020-10-02] MEDS ORDERED: levoFLOXacin 500MG 100 ML IV ONE (14:00)
[2020-10-02 17:00] VITALS: BP 106/56
[2020-10-02 22:00] VITALS: BP 128/66
[2020-10-03 05:19] VITALS: BP 119/63
[2020-10-03] MEDS ORDERED: DIGOXIN 0.125 MG TAB PO SCH (07:00)
[2020-10-03] MEDS ORDERED: CHOLECALCIFEROL (VITD3) 2,000 UNIT CAP/TAB PO SCH (07:00)
[2020-10-03 08:56] VITALS: BP 139/91
[2020-10-03] MEDS ORDERED: MULTIPLE VITAMINS W/ MINERALS TAB PO SCH (10:00)
[2020-10-03] MEDS ORDERED: METOPROLOL TARTRATE 25 MG TAB PO SCH (10:00)
== END 2020-10-03 09:45 | disposition home or self-care (01) | DRG 243 ==
LOC: CATH 06:58 → TELE 11:58 → TELE-WESTW 13:24
PROVIDERS: ADMIT Internal Medicine Cardiovascular Disease; ATTEND Internal Medicine Cardiovascular Disease
PROC: 0JH606Z Insertion of Pacemaker, Dual Chamber into Chest Subcutaneous Tissue and Fascia, Open Approach (ICD-10-PCS; principal; 2020-10-02)
PROC: 02HK3JZ Insertion of Pacemaker Lead into Right Ventricle, Percutaneous Approach (ICD-10-PCS; 2020-10-02)
PROC: 02H63JZ Insertion of Pacemaker Lead into Right Atrium, Percutaneous Approach (ICD-10-PCS; 2020-10-02)
DX: I49.5 Sick sinus syndrome (principal); D68.59 Other primary thrombophilia; Z20.822 Contact with and (suspected) exposure to COVID-19; I48.0 Paroxysmal atrial fibrillation; I10 Essential (primary) hypertension; M19.90 Unspecified osteoarthritis, unspecified site; J44.9 Chronic obstructive pulmonary disease, unspecified; Z79.899 Other long term (current) drug therapy
CPT/HCPCS: 33208; 33225; 71045; 93005; 99152; 99153; C1785; G0378; J1956; J2250

== ENCOUNTER → 2020-12-01 | Outpatient (CLI) | payer OTHER ==
[2020-12-01 14:03] LABS: Basophils # (auto) 0.1 10 ^3/uL (0-0.2); Basophils % (auto) 1.2 % (0.0-2.0); Eosinophils # (auto) 0.1 10 ^3/uL (0-0.8); Eosinophils % (auto) 1.4 % (0.0-7.0); Hematocrit 47.2 % (36.0-46.0); Lymphocytes # (auto) 1.9 10 ^3/uL (0.4-5.4); Lymphocytes % (auto) 21.3 % (10.0-50.0); Mean Corpuscular Hemoglobin 32.7 pg (28.0-32.0); Mean Corpuscular Hgb Conc. 33.9 g/dL (32.0-36.0); Mean Corpuscular Volume 96.4 fL (80.0-100.0); Monocytes % (auto) 11.8 % (0.0-12.0); Neutrophils # (auto) 5.7 10 ^3/uL (1.6-8.6); Neutrophils % (auto) 64.3 % (37.0-80.0); Nucleated Red Blood Cells % 0.1 %; Red Cell Distribution Width 14.8 % (11.8-14.3); White Blood Cell 8.9 10^3/uL (4.4-10.8)
[2020-12-01 14:55] LABS: Calcium 8.7 mg/dL (8.5-10.1)
== END | disposition home or self-care (01) ==
LOC: LAB 11:33
PROVIDERS: ATTEND Internal Medicine Cardiovascular Disease
DX: Z01.812 Encounter for preprocedural laboratory examination (principal)
CPT/HCPCS: 36415; 80048; 85025; 85610

== ENCOUNTER 2020-12-02 10:55 | Inpatient (IN) | payer OTHER ==
[~2020-12-02] VITALS: Ht 162.6 cm; Wt 47.8 kg
[2020-12-02] MEDS ORDERED: VANCOMYCIN 1GM/250ML 250 ML IV ONE (13:48)
[2020-12-02] MEDS ORDERED: diphenhdrAMINE HCL 50 MG/1 ML VL ONE (13:53)
[2020-12-02] MEDS ORDERED: fentaNYL CITRATE 100 MCG/2 ML VL ONE (13:53)
[2020-12-02] MEDS ORDERED: MIDAZOLAM HCL 1MG/1ML-2 ML VIAL ONE (13:53)
[2020-12-02] MEDS ORDERED: VANCOMYCIN HCL 1000 MG VL ONE (13:58)
[2020-12-02] MEDS ORDERED: LIDOCAINE 2%HCL (LOCAL ANESTH.) INJ 20ML MDV ONE (13:59)
[2020-12-02] MEDS ORDERED: BACITRACIN INJ 50000 UNIT VIAL ONE (14:20)
[2020-12-02] MEDS: SODIUM CHLORIDE 0.9% 1,000 ML IV SCH (15:00)
[2020-12-02] MEDS ORDERED: NITROGLYCERIN 0.4 MG SL TAB SL PRN (16:00)
[2020-12-02] MEDS ORDERED: MORPHINE SULF INJ 2 MG/ML SYRINGE 1ML IV PRN (16:00)
[2020-12-02 17:19] VITALS: BP 106/47
[2020-12-02 18:59] VITALS: BP 106/47
[2020-12-02] MEDS ORDERED: levoFLOXacin 500MG 100 ML IV SCH (21:00)
[2020-12-02] MEDS: ACETAMINOPHEN 325 MG TAB PO PRN (21:20)
[2020-12-02 21:43] VITALS: BP 100/68
[2020-12-03] MEDS: SODIUM CHLORIDE 0.9% 1,000 ML IV SCH ×4 (01:31→23:00)
[2020-12-03 05:06] VITALS: BP 131/85
[2020-12-03] MEDS: DIGOXIN 0.125 MG TAB PO SCH (06:00)
[2020-12-03] MEDS ORDERED: METOPROLOL TARTRATE 25 MG TAB PO SCH (07:00)
[2020-12-03 07:09] LABS: Basophils # (auto) 0.1 10 ^3/uL (0-0.2); Basophils % (auto) 1.4 % (0.0-2.0); Eosinophils # (auto) 0.1 10 ^3/uL (0-0.8); Hematocrit 43.1 % (36.0-46.0); Hemoglobin 14.4 g/dL (12.2-16.2); Lymphocytes # (auto) 1.1 10 ^3/uL (0.4-5.4); Lymphocytes % (auto) 17.1 % (10.0-50.0); Mean Corpuscular Hemoglobin 31.8 pg (28.0-32.0); Mean Corpuscular Hgb Conc. 33.5 g/dL (32.0-36.0); Mean Corpuscular Volume 94.9 fL (80.0-100.0); Monocytes # (auto) 0.7 10 ^3/uL (0-1.3); Monocytes % (auto) 11.3 % (0.0-12.0); Neutrophils # (auto) 4.4 10 ^3/uL (1.6-8.6); Neutrophils % (auto) 68.2 % (37.0-80.0); Nucleated Red Blood Cells % 0.1 %; Red Blood Cells 4.54 10^6/uL (4.0-5.20); Red Cell Distribution Width 14.6 % (11.8-14.3); White Blood Cell 6.4 10^3/uL (4.4-10.8)
[2020-12-03 07:55] LABS: Calcium 8.5 mg/dL (8.5-10.1); Potassium 4.2 mmol/L (3.5-5.1)
[2020-12-03 07:57] LABS: BUN/Creatinine Ratio 33.8
[2020-12-03 09:00] VITALS: BP 148/98
[2020-12-03 13:00] VITALS: BP 135/80
[2020-12-03] MEDS: METOPROLOL TARTRATE 25 MG TAB PO SCH (13:18)
[2020-12-03] MEDS: VANCOMYCIN 1GM/250ML 250 ML IV SCH (14:10)
[2020-12-03 17:00] VITALS: BP 156/86
[2020-12-03 22:00] VITALS: BP 149/60
[2020-12-03] MEDS: ACETAMINOPHEN 325 MG TAB PO PRN (22:56)
[2020-12-04 05:00] VITALS: BP 154/68
[2020-12-04] MEDS: DIGOXIN 0.125 MG TAB PO SCH (06:28)
[2020-12-04] MEDS: SODIUM CHLORIDE 0.9% 1,000 ML IV SCH ×2 (07:00→14:36)
[2020-12-04 08:30] VITALS: BP 130/71
[2020-12-04] MEDS: METOPROLOL TARTRATE 25 MG TAB PO SCH (10:54)
[2020-12-04 12:30] VITALS: BP 129/70
[2020-12-04] MEDS: VANCOMYCIN 1GM/250ML 250 ML IV SCH (13:28)
[2020-12-04] MEDS: ACETAMINOPHEN 325 MG TAB PO PRN (14:00)
[2020-12-04 17:00] VITALS: BP 145/90
[2020-12-04 22:00] VITALS: BP 146/74
[2020-12-05 05:00] VITALS: BP 157/82
[2020-12-05] MEDS: DIGOXIN 0.125 MG TAB PO SCH (06:41)
[2020-12-05] MEDS: SODIUM CHLORIDE 0.9% 1,000 ML IV SCH ×2 (07:00→15:00)
[2020-12-05 09:00] VITALS: BP 153/90
[2020-12-05] MEDS: METOPROLOL TARTRATE 25 MG TAB PO SCH (10:00)
[2020-12-05 11:04] LABS: Basophils # (auto) 0.1 10 ^3/uL (0-0.2); Basophils % (auto) 1.4 % (0.0-2.0); Eosinophils # (auto) 0.1 10 ^3/uL (0-0.8); Eosinophils % (auto) 1.5 % (0.0-7.0); Hematocrit 45.2 % (36.0-46.0); Lymphocytes # (auto) 1.6 10 ^3/uL (0.4-5.4); Lymphocytes % (auto) 22.2 % (10.0-50.0); Mean Corpuscular Hemoglobin 31.5 pg (28.0-32.0); Mean Corpuscular Hgb Conc. 33.2 g/dL (32.0-36.0); Mean Corpuscular Volume 94.9 fL (80.0-100.0); Monocytes # (auto) 0.9 10 ^3/uL (0-1.3); Monocytes % (auto) 12.8 % (0.0-12.0); Neutrophils # (auto) 4.6 10 ^3/uL (1.6-8.6); Neutrophils % (auto) 62.1 % (37.0-80.0); Nucleated Red Blood Cells % 0.1 %; Red Blood Cells 4.76 10^6/uL (4.0-5.20); Red Cell Distribution Width 14.5 % (11.8-14.3); White Blood Cell 7.3 10^3/uL (4.4-10.8)
[2020-12-05 11:08] LABS: Urine Bacteria NONE SEEN /hpf (None Seen); Urine Blood Negative /uL (Negative); Urine Specific Gravity 1.015 (1.001-1.035); Urine WBC 4 /hpf (0 - 5)
[2020-12-05 11:17] LABS: INR 1.09 (0.9-1.15); Partial Thromboplastin Time 26.8 sec (23.0-31.2)
[2020-12-05 11:25] LABS: Albumin 3.3 g/dL (3.4-5.0); BUN/Creatinine Ratio 28.2; Calcium 8.7 mg/dL (8.5-10.1); Potassium 4.4 mmol/L (3.5-5.1)
[2020-12-05 11:32] LABS: Bilirubin, Total 0.6 mg/dL (0.2-1.0); Total Protein 7.3 g/dL (6.4-8.2)
[2020-12-05 13:00] VITALS: BP 136/71
[2020-12-05] MEDS: VANCOMYCIN 1GM/250ML 250 ML IV SCH (14:00)
[2020-12-05] MEDS ORDERED: fentaNYL CITRATE 100 MCG/2 ML VL ONE (14:54)
[2020-12-05] MEDS ORDERED: VANCOMYCIN HCL 1000 MG VL ONE (14:54)
[2020-12-05] MEDS ORDERED: MIDAZOLAM HCL 1MG/1ML-2 ML VIAL ONE (14:55)
[2020-12-05] MEDS ORDERED: BACITRACIN INJ 50000 UNIT VIAL ONE (14:55)
[2020-12-05] MEDS ORDERED: LIDOCAINE 2%HCL (LOCAL ANESTH.) INJ 20ML MDV ONE (14:56)
[2020-12-05] MEDS ORDERED: VANCOMYCIN 1GM/250ML 250 ML IV ONE (15:13)
[2020-12-05] MEDS ORDERED: levoFLOXacin 500MG 100 ML IV ONE (15:30)
[2020-12-05] MEDS ORDERED: FLUMAZENIL 0.1 MG/ML INJ 10ML MDV IV ONE (15:32)
[2020-12-05] MEDS ORDERED: ONDANSETRON HCL 4 MG/2 ML VIAL IV ONE (17:07)
[2020-12-05] MEDS ORDERED: ONDANSETRON HCL 4 MG/2 ML VIAL ONE (17:07)
[2020-12-05 22:25] VITALS: BP 146/82
[2020-12-06] MEDS: ACETAMINOPHEN 325 MG TAB PO PRN (03:06)
[2020-12-06 05:08] VITALS: BP 151/68
[2020-12-06] MEDS: DIGOXIN 0.125 MG TAB PO SCH (06:26)
[2020-12-06] MEDS: SODIUM CHLORIDE 0.9% 1,000 ML IV SCH (07:00)
[2020-12-06 08:41] VITALS: BP 127/76
[2020-12-06] MEDS: METOPROLOL TARTRATE 25 MG TAB PO SCH (10:00)
[2020-12-06] MEDS ORDERED: levoFLOXacin 250MG 50 ML IV SCH (21:00)
== END 2020-12-06 12:24 | disposition home or self-care (01) | DRG 243 ==
LOC: CATH 10:55 → TELE 14:40 → TELE-CENTR 16:49
PROVIDERS: ADMIT Internal Medicine Cardiovascular Disease; ATTEND Internal Medicine Cardiovascular Disease
PROC: 02PA3MZ Removal of Cardiac Lead from Heart, Percutaneous Approach (ICD-10-PCS; principal; 2020-12-02)
PROC: 0JPT0PZ Removal of Cardiac Rhythm Related Device from Trunk Subcutaneous Tissue and Fascia, Open Approach (ICD-10-PCS; 2020-12-02)
PROC: 0JH604Z Insertion of Pacemaker, Single Chamber into Chest Subcutaneous Tissue and Fascia, Open Approach (ICD-10-PCS; 2020-12-05)
PROC: 02HK3JZ Insertion of Pacemaker Lead into Right Ventricle, Percutaneous Approach (ICD-10-PCS; 2020-12-05)
DX: T82.118A Breakdown (mechanical) of other cardiac electronic device, initial encounter (principal); D68.59 Other primary thrombophilia; Z88.0 Allergy status to penicillin; I10 Essential (primary) hypertension; I48.0 Paroxysmal atrial fibrillation; I49.5 Sick sinus syndrome; Z85.43 Personal history of malignant neoplasm of ovary; Z20.822 Contact with and (suspected) exposure to COVID-19; Y83.8 Other surgical procedures as the cause of abnormal reaction of the patient, or of later complication, without mention of misadventure at the time of the procedure; Y92.89 Other specified places as the place of occurrence of the external cause
CPT/HCPCS: 36415; 71045; 71046; 80048; 80053; 80202; 81001; 82565; 85025; 85610; 85730; 86850; 86900; 86901; 99152; 99153; G0378; J1956; J2250; J2405

== ENCOUNTER 2021-08-10 23:48 | Emergency (ER) | payer OTHER ==
[~2021-08-10] VITALS: Ht 152.4 cm; Wt 45.4 kg
[2021-08-11 01:04] LABS: Basophils # (auto) 0 10 ^3/uL (0-0.2); Basophils % (auto) 0.2 % (0.0-2.0); Eosinophils # (auto) 0.1 10 ^3/uL (0-0.8); Eosinophils % (auto) 2.4 % (0.0-7.0); Hematocrit 37.2 % (36.0-46.0); Hemoglobin 12.6 g/dL (12.2-16.2); Lymphocytes # (auto) 1.1 10 ^3/uL (0.4-5.4); Lymphocytes % (auto) 17.4 % (10.0-50.0); Mean Corpuscular Hemoglobin 32.2 pg (28.0-32.0); Mean Corpuscular Hgb Conc. 33.8 g/dL (32.0-36.0); Mean Corpuscular Volume 95.3 fL (80.0-100.0); Monocytes # (auto) 0.6 10 ^3/uL (0-1.3); Monocytes % (auto) 10.3 % (0.0-12.0); Neutrophils # (auto) 4.3 10 ^3/uL (1.6-8.6); Neutrophils % (auto) 69.7 % (37.0-80.0); Nucleated Red Blood Cells % 0.1 %; Red Blood Cells 3.91 10^6/uL (4.0-5.20); Red Cell Distribution Width 14.8 % (11.8-14.3); White Blood Cell 6.2 10^3/uL (4.4-10.8)
[2021-08-11 01:19] LABS: INR 1.89 (0.9-1.15)
[2021-08-11 04:40] VITALS: BP 141/77
== END 2021-08-11 04:40 | disposition home or self-care (01) ==
LOC: EDBD 23:48 → ER 23:50
DX: R04.0 Epistaxis (principal); E78.5 Hyperlipidemia, unspecified; I10 Essential (primary) hypertension; Z90.89 Acquired absence of other organs; Z86.73 Personal history of transient ischemic attack (TIA), and cerebral infarction without residual deficits; Z79.01 Long term (current) use of anticoagulants; Z95.0 Presence of cardiac pacemaker; Z88.0 Allergy status to penicillin
CPT/HCPCS: 30901; 30903; 36415; 85025; 85610

== ENCOUNTER 2021-08-13 10:26 | Emergency (ER) | payer OTHER ==
[~2021-08-13] VITALS: Ht 162.6 cm; Wt 46.7 kg
[2021-08-13 10:58] VITALS: BP 163/80
== END 2021-08-13 11:05 | disposition home or self-care (01) ==
LOC: ER 10:26
DX: R04.0 Epistaxis (principal); I48.91 Unspecified atrial fibrillation; E78.5 Hyperlipidemia, unspecified; Z86.73 Personal history of transient ischemic attack (TIA), and cerebral infarction without residual deficits; Z90.89 Acquired absence of other organs; Z88.0 Allergy status to penicillin

== ENCOUNTER → 2022-01-05 | Outpatient (CLI) | payer OTHER ==
[2022-01-05 10:39] LABS: Basophils # (auto) 0 10 ^3/uL (0-0.2); Basophils % (auto) 0.2 % (0.0-2.0); Eosinophils # (auto) 0.1 10 ^3/uL (0-0.8); Eosinophils % (auto) 1.6 % (0.0-7.0); Hematocrit 40.4 % (36.0-46.0); Hemoglobin 13.2 g/dL (12.2-16.2); Lymphocytes # (auto) 1.1 10 ^3/uL (0.4-5.4); Lymphocytes % (auto) 21.9 % (10.0-50.0); Mean Corpuscular Hemoglobin 31.3 pg (28.0-32.0); Mean Corpuscular Hgb Conc. 32.5 g/dL (32.0-36.0); Mean Corpuscular Volume 96.1 fL (80.0-100.0); Monocytes # (auto) 0.5 10 ^3/uL (0-1.3); Monocytes % (auto) 10.9 % (0.0-12.0); Neutrophils # (auto) 3.3 10 ^3/uL (1.6-8.6); Neutrophils % (auto) 65.4 % (37.0-80.0); Red Blood Cells 4.21 10^6/uL (4.0-5.20); Red Cell Distribution Width 14.7 % (11.8-14.3)
[2022-01-05 11:14] LABS: Albumin 3.3 g/dL (3.4-5.0); Potassium 5.3 mmol/L (3.5-5.1)
[2022-01-05 11:19] LABS: Free T4 (Free Thyroxine) 1.12 ng/dL (0.89-1.76); T3 Total 0.77 ng/mL (0.60-1.81)
[2022-01-05 11:21] LABS: BUN/Creatinine Ratio 20.5; Bilirubin, Total 0.6 mg/dL (0.2-1.0); Calcium 8.8 mg/dL (8.5-10.1); Total Protein 6.6 g/dL (6.4-8.2)
== END | disposition home or self-care (01) ==
LOC: LAB 10:13
PROVIDERS: ATTEND Internal Medicine
DX: Z00.00 Encounter for general adult medical examination without abnormal findings (principal); Z12.11 Encounter for screening for malignant neoplasm of colon; I10 Essential (primary) hypertension
CPT/HCPCS: 36415; 80053; 80061; 82274; 82306; 84439; 84443; 84480; 85025

== ENCOUNTER → 2022-01-11 | Outpatient (CLI) | payer OTHER | END | disposition home or self-care (01) | LOC: Rad HDHVI 09:06 | PROVIDERS: ATTEND Internal Medicine Cardiovascular Disease | DX: M46.92 Unspecified inflammatory spondylopathy, cervical region (principal); M54.50 Low back pain, unspecified; M48.07 Spinal stenosis, lumbosacral region; K45.8 Other specified abdominal hernia without obstruction or gangrene; M41.86 Other forms of scoliosis, lumbar region | CPT/HCPCS: 72131 ==

== ENCOUNTER → 2022-01-20 | Outpatient (CLI) | payer OTHER | END | disposition home or self-care (01) | LOC: Rad HDHVI 08:00 | PROVIDERS: ATTEND Internal Medicine Cardiovascular Disease | DX: I70.203 Unspecified atherosclerosis of native arteries of extremities, bilateral legs (principal) | CPT/HCPCS: 93925 ==

== ENCOUNTER → 2022-03-05 | Outpatient (CLI) | payer OTHER ==
[~2022-03-05] VITALS: Ht 162.6 cm; Wt 46.7 kg
[~2022-03-05] MED LIST changes: +APIX2.5T PO; +CICL8SOL3 TOP; +CLOP75TA28 PO; +LISI-275 PO; +MET25T PO; +METO-6 PO
[2022-03-05 10:11] VITALS: BP 113/64
[2022-03-05 10:36] VITALS: BP 156/70
[2022-03-05 11:31] LABS: Basophils # (auto) 0.1 10 ^3/uL (0-0.2); Eosinophils # (auto) 0.1 10 ^3/uL (0-0.8); Eosinophils % (auto) 1.4 % (0.0-7.0); Hematocrit 39.3 % (36.0-46.0); Hemoglobin 12.9 g/dL (12.2-16.2); Lymphocytes % (auto) 18.1 % (10.0-50.0); Mean Corpuscular Hemoglobin 31.9 pg (28.0-32.0); Mean Corpuscular Hgb Conc. 32.9 g/dL (32.0-36.0); Monocytes # (auto) 0.7 10 ^3/uL (0-1.3); Monocytes % (auto) 12.1 % (0.0-12.0); Neutrophils # (auto) 3.8 10 ^3/uL (1.6-8.6); Neutrophils % (auto) 66.4 % (37.0-80.0); Red Blood Cells 4.05 10^6/uL (4.0-5.20); Red Cell Distribution Width 14.5 % (11.8-14.3); White Blood Cell 5.7 10^3/uL (4.4-10.8)
[2022-03-05 11:42] LABS: Calcium 8.4 mg/dL (8.5-10.1); Potassium 5.4 mmol/L (3.5-5.1)
[2022-03-05 11:44] LABS: BUN/Creatinine Ratio 28.7; INR 2.39 (0.9-1.15)
== END | disposition home or self-care (01) ==
LOC: CHF HDHVI 09:56
PROVIDERS: ATTEND Internal Medicine Cardiovascular Disease
DX: Z01.818 Encounter for other preprocedural examination (principal); R94.31 Abnormal electrocardiogram [ECG] [EKG]; I08.0 Rheumatic disorders of both mitral and aortic valves; I11.0 Hypertensive heart disease with heart failure; I50.23 Acute on chronic systolic (congestive) heart failure
CPT/HCPCS: 36415; 80048; 85025; 85610; 85730; 93005; G0463

== ENCOUNTER 2022-03-09 11:00 | Inpatient (IN) | payer OTHER ==
[~2022-03-09] VITALS: Ht 162.6 cm; Wt 51.8 kg
[2022-03-09] VITALS (8 sets, daily range): BP systolic 104–153; BP diastolic 56–84
[~2022-03-09 11:00] MED LIST changes: -APIX2.5T PO; -CICL8SOL3 TOP; -CLOP75TA28 PO; -LISI-275 PO; -MET25T PO; -METO25TA5 PO
[2022-03-09 12:28] LABS: INR 1.12 (0.9-1.15)
[2022-03-09] MEDS ORDERED: LIDOCAINE 2%HCL (LOCAL ANESTH.) INJ 20ML MDV ONE ×2 (12:52→17:16)
[2022-03-09] MEDS ORDERED: IODIXANOL 320MG/ML 100ML BTL IV ONE (12:52)
[2022-03-09] MEDS ORDERED: fentaNYL CITRATE 100 MCG/2 ML VL ONE ×2 (13:39→18:16)
[2022-03-09] MEDS ORDERED: MIDAZOLAM HCL 2MG/2ML 2ml VIAL (1mg/ml) ONE ×2 (13:39→18:16)
[2022-03-09] MEDS ORDERED: SODIUM CHL 0.9% 50 ML ONE (13:39)
[2022-03-09] MEDS ORDERED: ANGIOMAX 250 MG VIAL IV ONE (13:39)
[2022-03-09] MEDS ORDERED: ATROPINE SULF 1 MG/10ml SYR ONE ×2 (14:29→14:57)
[2022-03-09] MEDS ORDERED: CLOPIDOGREL 300 MG TAB ONE (14:50)
[2022-03-09] MEDS ORDERED: MORPHINE SULFATE INJ 2 MG/ml SYRG IV PRN (15:30)
[2022-03-09] MEDS ORDERED: NITROGLYCERIN 0.4 MG SL TAB SL PRN (15:30)
[2022-03-09] MEDS: ACETAMINOPHEN 500 MG TAB PO PRN (16:02)
[2022-03-09] MEDS ORDERED: VANCOMYCIN 1GM/250ML 250 ML IV ONE (18:18)
[2022-03-09] MEDS ORDERED: VANCOMYCIN HCL 1000 MG VL ONE (18:18)
[2022-03-09] MEDS ORDERED: CICL8SOL3 TOP (20:40)
[2022-03-09] MEDS ORDERED: LISI-275 PO (20:40)
[2022-03-09] MEDS ORDERED: MET25T PO (20:40)
[2022-03-09] MEDS: SODIUM CHLOR 0.9% PF (SALINE LOCK) 10ML VIAL/SYR IV SCH (22:15)
[2022-03-10] MEDS: ACETAMINOPHEN 500 MG TAB PO PRN (00:22)
[2022-03-10 05:00] VITALS: BP 141/82
[2022-03-10] MEDS ORDERED: VANCOMYCIN 1GM/250ML 250 ML IV ONE (06:00)
[2022-03-10] MEDS: SODIUM CHLOR 0.9% PF (SALINE LOCK) 10ML VIAL/SYR IV SCH (06:14)
[2022-03-10 09:00] VITALS: BP 152/87
[2022-03-10] MEDS ORDERED: APIX2.5T PO (10:24)
[2022-03-10] MEDS ORDERED: CLOP75TA28 PO (10:24)
[2022-03-10 13:00] VITALS: BP 96/48
[2022-03-10 14:49] VITALS: BP 96/48
== END 2022-03-10 15:55 | disposition home or self-care (01) | DRG 247 ==
LOC: CATH 11:00 → TELE 15:33 → TELE-CENTR 19:40
PROVIDERS: ADMIT Internal Medicine; ATTEND Internal Medicine
PROC: 027034Z Dilation of Coronary Artery, One Artery with Drug-eluting Intraluminal Device, Percutaneous Approach (ICD-10-PCS; principal; 2022-03-09)
PROC: 02PA3MZ Removal of Cardiac Lead from Heart, Percutaneous Approach (ICD-10-PCS; 2022-03-09)
PROC: 4A023N8 Measurement of Cardiac Sampling and Pressure, Bilateral, Percutaneous Approach (ICD-10-PCS; 2022-03-09)
PROC: B211YZZ Fluoroscopy of Multiple Coronary Arteries using Other Contrast (ICD-10-PCS; 2022-03-09)
PROC: B215YZZ Fluoroscopy of Left Heart using Other Contrast (ICD-10-PCS; 2022-03-09)
PROC: 4A033BC Measurement of Arterial Pressure, Coronary, Percutaneous Approach (ICD-10-PCS; 2022-03-09)
PROC: 02HK3JZ Insertion of Pacemaker Lead into Right Ventricle, Percutaneous Approach (ICD-10-PCS; 2022-03-09)
DX: I25.119 Atherosclerotic heart disease of native coronary artery with unspecified angina pectoris (principal); D68.69 Other thrombophilia; I49.5 Sick sinus syndrome; I10 Essential (primary) hypertension; I48.91 Unspecified atrial fibrillation; E78.5 Hyperlipidemia, unspecified; Z20.822 Contact with and (suspected) exposure to COVID-19; J44.9 Chronic obstructive pulmonary disease, unspecified; Z79.02 Long term (current) use of antithrombotics/antiplatelets; Z79.01 Long term (current) use of anticoagulants
CPT/HCPCS: 36415; 71045; 85610; 94010; 99152; 99153; C1751; C1874; G0378; J2250; Q9967

== ENCOUNTER → 2022-04-01 | Outpatient (CLI) | payer OTHER ==
[~2022-04-01] MED LIST changes: +APIX2.5T PO; +CICL8SOL3 TOP; +CLOP75TA28 PO; +LISI-275 PO; +MET25T PO; -WARF5TAB71 PO
== END | disposition home or self-care (01) ==
LOC: Rad HDHVI 08:55
PROVIDERS: ATTEND Internal Medicine Cardiovascular Disease
DX: I08.3 Combined rheumatic disorders of mitral, aortic and tricuspid valves (principal); R00.2 Palpitations; R06.02 Shortness of breath
CPT/HCPCS: 93306

== ENCOUNTER → 2022-04-30 | Outpatient (CLI) | payer OTHER | END | disposition home or self-care (01) | LOC: XYW 09:09 | PROVIDERS: ATTEND Podiatrist | DX: I77.9 Disorder of arteries and arterioles, unspecified (principal) | CPT/HCPCS: 93925 ==

== ENCOUNTER 2022-08-05 06:59 | Day surgery (SDC) | payer OTHER ==
[2022-08-02 12:05] LABS: Hematocrit 41.5 % (36.0-46.0); Hemoglobin 13.7 g/dL (12.2-16.2); Mean Corpuscular Hgb Conc. 32.9 g/dL (32.0-36.0); Mean Corpuscular Volume 97.4 fL (80.0-100.0); Red Blood Cells 4.26 10^6/uL (4.0-5.20); Red Cell Distribution Width 14.5 % (11.8-14.3); White Blood Cell 9.8 10^3/uL (4.4-10.8)
[2022-08-02 12:11] LABS: Band Neutrophils % (manual) 0; Basophils % (manual) 0 (0.0-2.0); Blast Cells 0; Metamyelocytes % 0; Myelocytes % 0; Promyelocytes % 0; Reactive Lymphocytes 0
[2022-08-02 12:39] LABS: Calcium 9.3 mg/dL (8.5-10.1); Potassium 5.1 mmol/L (3.5-5.1)
[2022-08-02 13:27] LABS: INR 0.98 (0.9-1.15); Partial Thromboplastin Time 28.1 sec (24.6-33.4)
[2022-08-02 16:15] LABS: Eosinophils % (manual) 1 (0-7); Lymphocytes % (manual) 23 (10.0-50.0); Monocytes % (manual) 6 (0-12)
[~2022-08-05] VITALS: Ht 162.6 cm; Wt 48.5 kg
[2022-08-05] VITALS (8 sets, daily range): BP systolic 147–169; BP diastolic 83–99
[~2022-08-05 06:59] MED LIST changes: -CICL8SOL3 TOP; -MET25T PO; -METO-6 PO; +METO25TA5 PO
[2022-08-05] MEDS ORDERED: ANGIOMAX 250 MG VIAL IV ONE (13:37)
[2022-08-05] MEDS ORDERED: MIDAZOLAM HCL 2MG/2ML 2ml VIAL (1mg/ml) ONE (13:38)
[2022-08-05] MEDS ORDERED: fentaNYL CITRATE 100 MCG/2 ML VL ONE (13:38)
[2022-08-05] MEDS ORDERED: SODIUM CHL 0.9% 0 ML ONE (13:39)
[2022-08-05] MEDS ORDERED: IODIXANOL 320MG/ML 100ML BTL IV ONE ×3 (13:40→13:52)
[2022-08-05] MEDS ORDERED: IOHEXOL 350 MG/ML 500ML BOTTLE IJ ONE (13:44)
== END 2022-08-05 16:50 | disposition home or self-care (01) ==
LOC: CATH 06:59
PROVIDERS: ATTEND Internal Medicine Cardiovascular Disease
DX: I35.0 Nonrheumatic aortic (valve) stenosis (principal); R07.89 Other chest pain; I25.10 Atherosclerotic heart disease of native coronary artery without angina pectoris; Z20.822 Contact with and (suspected) exposure to COVID-19; J44.9 Chronic obstructive pulmonary disease, unspecified
CPT/HCPCS: 36415; 80048; 85007; 85027; 85049; 85610; 85730; 93460; C1769; C1894; J1644; J2250; J3010; Q9967; U0003

== ENCOUNTER → 2022-12-24 | Outpatient (CLI) | payer OTHER ==
[~2022-12-24] MED LIST changes: +BACITRACIN TOP OINT 1 UD PKG TOP ONE; -CLOP75TA28 PO
[2022-12-24 09:40] VITALS: BP 129/78; PULSE 65; RESP 20; O2SAT 93
[2022-12-24 09:57] VITALS: BP 157/61; PULSE 59; RESP 20; O2SAT 95
== END | disposition home or self-care (01) ==
LOC: CHF HDHVI 08:59
PROVIDERS: ATTEND Internal Medicine Cardiovascular Disease
DX: R22.41 Localized swelling, mass and lump, right lower limb (principal)
CPT/HCPCS: G0463

== ENCOUNTER 2023-02-07 10:42 | Inpatient (IN) | payer OTHER ==
[~2023-02-07] VITALS: Ht 162.6 cm; Wt 50.5 kg
[~2023-02-07 10:42] MED LIST changes: -BACITRACIN TOP OINT 1 UD PKG TOP ONE
[2023-02-07 12:10] LABS: Basophils # (auto) 0.1 10 ^3/uL (0-0.2); Basophils % (auto) 2.1 % (0.0-2.0); Eosinophils # (auto) 0.1 10 ^3/uL (0-0.8); Hematocrit 40.4 % (36.0-46.0); Hemoglobin 13.3 g/dL (12.2-16.2); Mean Corpuscular Hemoglobin 31.9 pg (28.0-32.0); Mean Corpuscular Hgb Conc. 32.8 g/dL (32.0-36.0); Mean Corpuscular Volume 97.3 fL (80.0-100.0); Monocytes # (auto) 0.6 10 ^3/uL (0-1.3); Monocytes % (auto) 10.6 % (0.0-12.0); Neutrophils # (auto) 4.3 10 ^3/uL (1.6-8.6); Neutrophils % (auto) 69.3 % (37.0-80.0); Nucleated Red Blood Cells % 0.1 %; Red Blood Cells 4.16 10^6/uL (4.0-5.20); Red Cell Distribution Width 14.3 % (11.8-14.3); White Blood Cell 6.1 10^3/uL (4.4-10.8)
[2023-02-07 13:49] LABS: Alanine Aminotransferase 31 U/L (7-40); Alkaline Phosphatase 71 U/L (46-116); Aspartate Aminotransferase 21 U/L (13-40); BUN/Creatinine Ratio 25.2 (10.0-20.0); Bilirubin, Total 0.5 mg/dL (0.2-1.0); Blood Urea Nitrogen 28 mg/dL (9-23); Calcium 8.9 mg/dL (8.5-10.1); Carbon Dioxide 22 mmol/L (20-30); Glucose 97 mg/dL (74-106); Magnesium 1.8 mg/dL (1.6-2.6); Total Protein 6.3 g/dL (5.7-8.2)
[2023-02-07 14:34] LABS: Anion Gap 6 (5-15); Chloride 110 mmol/L (98-107); Potassium 4.8 mmol/L (3.5-5.1); Sodium 138 mmol/L (136-145)
[2023-02-07 16:45] VITALS: PULSE 60; RESP 17; O2SAT 97
[2023-02-07] MEDS ORDERED: FUROSEMIDE 20 MG/2 ML VIAL IV ONE (17:45)
[2023-02-07 18:39] LABS: Urine Bacteria FEW /hpf (None Seen); Urine Blood Negative /uL (Negative); Urine Clarity Clear (Clear); Urine Color Colorless (Yellow); Urine Protein, UAD Negative (Negative); Urine Specific Gravity 1.013 (1.001-1.035); Urine Urobilinogen Normal (Negative); Urine WBC 1 /hpf (0 - 5); Urine pH 5.5 (5.0-8.0)
[2023-02-07] MEDS ORDERED: NITROGLYCERIN 0.4 MG SL TAB SL PRN (19:45)
[2023-02-07] MEDS ORDERED: DOCUSATE SOD 100 MG CAP PO PRN (19:45)
[2023-02-07] MEDS ORDERED: MORPHINE SULFATE INJ 2 MG/ml SYRG IV PRN (19:45)
[2023-02-07] MEDS ORDERED: ACETAMINOPHEN 325 MG TAB PO PRN (19:45)
[2023-02-07] MEDS: METOPROLOL TARTRATE 25 MG TAB PO SCH (21:03)
[2023-02-07] MEDS: LISINOPRIL 5 MG TAB PO SCH (21:03)
[2023-02-07 23:30] VITALS: BP 139/71; PULSE 60; RESP 18; TEMP 97.7; O2SAT 93
[2023-02-07 23:37] VITALS: BP 139/71; PULSE 60; RESP 18; TEMP 97.7; O2SAT 93
[2023-02-07] MEDS: APIXABAN 2.5 MG TAB PO SCH (23:47)
[2023-02-08 05:00] VITALS: BP 138/81; PULSE 60; RESP 18; TEMP 97.5; O2SAT 94
[2023-02-08 06:18] LABS: Basophils # (auto) 0.1 10 ^3/uL (0-0.2); Basophils % (auto) 1.3 % (0.0-2.0); Eosinophils # (auto) 0.2 10 ^3/uL (0-0.8); Hematocrit 42.3 % (36.0-46.0); Lymphocytes # (auto) 1.3 10 ^3/uL (0.4-5.4); Lymphocytes % (auto) 19.1 % (10.0-50.0); Mean Corpuscular Hemoglobin 32.1 pg (28.0-32.0); Mean Corpuscular Hgb Conc. 33.1 g/dL (32.0-36.0); Mean Corpuscular Volume 97.1 fL (80.0-100.0); Monocytes # (auto) 0.9 10 ^3/uL (0-1.3); Monocytes % (auto) 12.1 % (0.0-12.0); Neutrophils # (auto) 4.6 10 ^3/uL (1.6-8.6); Neutrophils % (auto) 64.5 % (37.0-80.0); Nucleated Red Blood Cells % 0.1 %; Red Blood Cells 4.35 10^6/uL (4.0-5.20); Red Cell Distribution Width 14.2 % (11.8-14.3); White Blood Cell 7.1 10^3/uL (4.4-10.8)
[2023-02-08 06:33] LABS: Alanine Aminotransferase 27 U/L (7-40); Albumin 4.1 g/dL (3.2-4.8); Alkaline Phosphatase 77 U/L (46-116); Anion Gap 7 (5-15); Aspartate Aminotransferase 17 U/L (13-40); BUN/Creatinine Ratio 21.6 (10.0-20.0); Bilirubin, Total 0.6 mg/dL (0.2-1.0); Blood Urea Nitrogen 24 mg/dL (9-23); Calcium 9.1 mg/dL (8.7-10.4); Carbon Dioxide 23 mmol/L (20-30); Chloride 107 mmol/L (98-107); Glucose 101 mg/dL (74-106); Potassium 3.8 mmol/L (3.5-5.1); Sodium 137 mmol/L (136-145); Total Protein 6.6 g/dL (5.7-8.2)
[2023-02-08] MEDS: LISINOPRIL 5 MG TAB PO SCH (06:49)
[2023-02-08] MEDS: METOPROLOL TARTRATE 25 MG TAB PO SCH (06:50)
[2023-02-08 08:00] VITALS: PULSE 60
[2023-02-08 09:00] VITALS: BP 135/80; PULSE 60; RESP 16; TEMP 97.6; O2SAT 90
[2023-02-08] MEDS: APIXABAN 2.5 MG TAB PO SCH (09:29)
[2023-02-08] MEDS ORDERED: FUROSEMIDE 20 MG/2 ML VIAL IV SCH (10:00)
[2023-02-08] MEDS ORDERED: PANTOPRAZOLE 40 MG TAB PO SCH (10:00)
[2023-02-08] MEDS ORDERED: DIGOXIN 0.125 MG TAB PO SCH (10:00)
[2023-02-08 13:00] VITALS: BP 137/68; PULSE 60; RESP 16; TEMP 97.2; O2SAT 95
[2023-02-08] MEDS ORDERED: FUROSEMIDE 20 MG/2 ML VIAL IV ONE (14:30)
[2023-02-08] MEDS ORDERED: FURO20TA3 PO (15:17)
[2023-02-08 17:00] VITALS: BP 118/65; PULSE 79; RESP 19; TEMP 97.9; O2SAT 94
== END 2023-02-08 18:05 | disposition home or self-care (01) | DRG 291 ==
LOC: ER 10:42 → TELE 19:39 → TELE-EAST 22:25
PROVIDERS: ADMIT Internal Medicine; ATTEND Student in an Organized Health Care Education/Training Program
DX: I11.0 Hypertensive heart disease with heart failure (principal); I50.43 Acute on chronic combined systolic (congestive) and diastolic (congestive) heart failure; I48.20 Chronic atrial fibrillation, unspecified; I82.501 Chronic embolism and thrombosis of unspecified deep veins of right lower extremity; R09.89 Other specified symptoms and signs involving the circulatory and respiratory systems; R79.89 Other specified abnormal findings of blood chemistry; Z66 Do not resuscitate; E78.5 Hyperlipidemia, unspecified; Z88.0 Allergy status to penicillin; Z95.0 Presence of cardiac pacemaker; Z86.73 Personal history of transient ischemic attack (TIA), and cerebral infarction without residual deficits
CPT/HCPCS: 36415; 71045; 71275; 80053; 80162; 81001; 83735; 83880; 84484; 85025; 93005; 93306; 97163; G0378